=== PATIENT | female | born 1960 | race Caucasian/White ===

== ENCOUNTER 2021-12-10 09:50 | Outpatient (CLI) | payer OTHER | END 2021-12-10 09:51 | disposition home or self-care (01) | LOC: CSHMAMMO 09:50 | PROVIDERS: ATTEND Family Medicine | DX: Z12.31 Encounter for screening mammogram for malignant neoplasm of breast (principal); Z13.820 Encounter for screening for osteoporosis; M81.0 Age-related osteoporosis without current pathological fracture | CPT/HCPCS: 77063; 77067; 77080 ==

== ENCOUNTER 2021-12-29 13:54 | Outpatient (CLI) | payer OTHER | END 2021-12-29 13:55 | disposition home or self-care (01) | LOC: CSHRAD 13:54 | PROVIDERS: ATTEND Family Medicine | DX: S16.1XXA Strain of muscle, fascia and tendon at neck level, initial encounter (principal); M47.812 Spondylosis without myelopathy or radiculopathy, cervical region | CPT/HCPCS: 72040 ==

== ENCOUNTER 2024-01-19 10:10 | Outpatient (CLI) | payer OTHER | END 2024-01-19 10:11 | disposition home or self-care (01) | LOC: CSHMAMMO 10:10 | PROVIDERS: ATTEND Family Medicine | DX: Z12.31 Encounter for screening mammogram for malignant neoplasm of breast (principal) | CPT/HCPCS: 77063; 77067 ==